=== PATIENT | female | born 1980 | race Caucasian/White ===

== ENCOUNTER 2022-02-22 19:11 | Emergency (ER) | payer OTHER ==
[2022-02-22 20:01] LABS: HEMOGLOBIN 15.5 gm/dl (12.3-15.3); RED BLOOD COUNT 4.72 M/UL (4.00-5.10); WHITE BLOOD COUNT 16.6 K/UL (4.5-11.0)
[2022-02-22 20:26] LABS: BUN/CREATININE RATIO 17 (0-10)
== END 2022-02-22 22:10 | disposition home or self-care (01) ==
LOC: ER1 19:11
PROVIDERS: Family Medicine
DX: S39.012A Strain of muscle, fascia and tendon of lower back, initial encounter (principal); S16.1XXA Strain of muscle, fascia and tendon at neck level, initial encounter; F11.20 Opioid dependence, uncomplicated; I10 Essential (primary) hypertension; V49.50XA Passenger injured in collision with unspecified motor vehicles in traffic accident, initial encounter; Y92.410 Unspecified street and highway as the place of occurrence of the external cause
CPT/HCPCS: 70450; 71260; 72125; 80053; 81001; 85025; 99284; Q9967